=== PATIENT | female | born 2000 | race Caucasian/White ===

== ENCOUNTER 2022-03-18 08:27 | Observation (INO) ==
[2022-03-18] MEDS ORDERED: SODIUM CHLORIDE 0.9% 1000ML 1,000 ML IV STA (08:36)
[2022-03-18 08:58] LABS: Basophils # (auto) 0.02 K/uL (0-0.2); Basophils % (auto) 0.2 %; Eosinophils # (auto) 0.06 K/uL (0-0.5); Eosinophils % (auto) 0.5 %; Hemoglobin 13.3 g/dL (12.0-16.0); Immature Granulocytes # (auto) 0.02 K/uL (0.00-0.02); Immature Granulocytes % (auto) 0.2 %; Lymphocytes # (auto) 2.35 K/uL (1.2-3.4); Mean Corpuscular Hemoglobin 31.4 pg (25-34); Mean Corpuscular Hgb Conc 34.1 g/dL (32-36); Mean Corpuscular Volume 92.2 fL (80-100); Mean Platelet Volume 9.5 fL (7.4-10.4); Monocytes # (auto) 0.95 K/uL (0.11-0.59); Monocytes % (auto) 8.5 %; Neutrophils # (auto) 7.81 K/uL (1.4-6.5); Neutrophils % (auto) 69.6 %; Platelet Count 282 K/uL (130-400); RDW Coefficient of Variation 12.2 % (11.5-14.5); RDW Standard Deviation 41.3 fL (36.4-46.3); Red Blood Count 4.23 M/uL (4.2-5.4); White Blood Count 11.21 K/uL (4.8-10.8)
[2022-03-18] MEDS ORDERED: cefOXitin 2,000 MG/60 ML BAG IV STA (09:00)
[2022-03-18] MEDS ORDERED: MoRPHine SULFATE 2 MG/ML CARP IV STA (09:01)
[2022-03-18] MEDS ORDERED: ONDANSETRON INJ 2 MG/ML 2 ML VIAL IV STA (09:01)
[2022-03-18 09:25] LABS: Pregnancy Test, Serum Negative (Negative)
[2022-03-18] MEDS ORDERED: ePHEDrine sulfate 50 MG/ML AMP IV PRN (10:03)
[2022-03-18] MEDS ORDERED: ONDANSETRON INJ 2 MG/ML 2 ML VIAL IV PRN ×2 (10:03→13:23)
[2022-03-18] MEDS ORDERED: ATROPINE SULFATE 0.1 MG/ML 10ML SYR IV PRN (10:03)
[2022-03-18 10:05] LABS: Albumin Globulin Ratio 1.5 (0.9-2); Albumin Level 4.4 gm/dl (3.4-5.0); BUN Creatinine Ratio 14.5 (10-20); Bilirubin,Total 0.9 mg/dl (0.2-1.0); Calcium 9.3 mg/dl (8.5-10.1); Creatinine Clr Calc Pharmacy 113.2 ml/min; Est GFR (African American) 146.3 ml/min; Est GFR (Non-African American) 126.2 ml/min; Potassium 3.5 mmol/L (3.5-5.1); Total Protein 7.4 gm/dl (6.0-8.3)
--- NOTE | 2022-03-18 10:05 | Anesthesiology Consultation ---
Date of Service March 18, 2022 Assessment & Plan (1) Encounter for pre-operative examination: Chart Review Chart Review: data entry manager initiated History Surgery Operation Date: 03/18/22 09:20 Proposed Procedures p Laparoscopic Appendectomy - Ryan Butcher MD Height/Weight Height: 5 ft 4 in Weight: 63.4 kg Allergies Allergy/AdvReac Type Severity Reaction Status Date / Time No Known Allergies Allergy Verified 03/17/22 21:33 Medications Home Medications Medication Instructions Recorded Confirmed Last Taken norethindrone 1 mg-ethinyl 1 tab PO DAILY 03/17/22 03/17/22 03/17/22 estradiol 20 mcg (21)-iron 75 mg (7) tablet (Adela Fe 11/26 (28)) Past Medical History Medical History No pertinent family history No pertinent past medical history Past Surgical History Surgical History No pertinent past surgical history Social History Smoking Status: Never smoker Physical Exam Vital Signs Last Vital Signs Temp 98.2 F 03/18/22 08:30 Pulse 81 03/18/22 08:30 Resp 16 03/18/22 08:30 BP 112/72 03/18/22 08:30 Pulse Ox 98 03/18/22 08:30 Testing Laboratory Results 03/18/22 08:41
--- NOTE | 2022-03-18 10:27 | History & Physical Report ---
Date of Service March 18, 2022 Assessment & Plan (1) Acute appendicitis: (2) Abdominal pain: Plan: 21 year-old female with abdominal pain that started yesterday afternoon at 3 pm. No pain more located in RLQ. CT scan showing acute appendicitis. Mild Leukocytosis of 11.21K. Tenderness in RLQ with + Rosvig's and McBurney's point. Plan: Discussed imaging findings and labs and examination consistent with likely early acute appendicitis. No Discussed recommendation of laparoscopic appendectomy and risks of procedure as well as expected recovery time. Informed consent obtained keep NPO COVID preop IV Cefoxitin Pending intraoperative findings and time of procedure possible discharge home this evening or tomorrow morning. Dr. Butcher has seen and examined pt, discussed above with patient and obtained consent. History of Present Illness Chief Complaint: Abdominal pain Primary Care Provider: [facility] Rosalba is a 21 year-old health female who originally presented to emergency department last evening with abdominal pain that started at 3 pm yesterday afternoon. She thought she had some indigestion and took Pepto Bismol and then pain started to spread down in lower abdomen and felt similar to ovarian cysts she had in past. She had Abdominal US which was concerning for appendicitis and pelvis US which was unremarkable for ovarian cysts/rupture. She also had CT scan of abdomen and pelvis in which initial read showed no appendicitis. She was called back in as second read of CT scan from our radiologist was consistent with acute appendicitis. She states she took some Tylenol at home last evening but then the pain seems to be increasing and coming back. States in the past the pain was only limited from the ovarian cysts and now this seems different. Denies of any fever, chills, nausea, vomiting, chest pain, shortness of breath, changes in bowel habits, blood in stools, difficulty urinating or blood in urine. Allergies Allergy/AdvReac Type Severity Reaction Status Date / Time No Known Allergies Allergy Verified 03/17/22 21:33 Home Medications Medication Instructions Recorded Confirmed Type norethindrone 1 mg-ethinyl 1 tab PO DAILY 03/17/22 03/18/22 History estradiol 20 mcg (21)-iron 75 mg (7) tablet (Adela Fe 11/26 (28)) Past Med/Surg History Medical History No pertinent family history No pertinent past medical history Surgical History No pertinent past surgical history Social History Smoking Status: Never smoker Preferred Language: [place] Citizen Feels Safe at Home: Yes Physical Exam Constitutional: WD/WN, vitals as above no acute distress and not ill appearing Neck: normal visual inspection and trachea midline Respiratory: normal respiratory effort, lungs clear to auscultation Cardiovascular: RRR, no murmur, no edema Gastrointestinal (Abdomen): Inspection/Auscultation: abdomen normal to inspection; abdomen not distended and + abnormal bowel sounds Percussion/Palpation: + abdomen tender (RLQ) and abdomen soft; no guarding and abdomen not rigid + rosvig's sign Skin: no rashes, warm and dry Psychiatric: A+Ox3, euthymic affect Results & Data Results & Data ([facility]) Vital Signs (Past 12 Hours) Vital Signs Temp Pulse Resp BP Pulse Ox 03/18/22 10:00 71 19 106/71 100 03/18/22 09:30 74 19 113/65 99 03/18/22 09:00 70 18 103/65 99 03/18/22 08:48 81 14 98 03/18/22 08:37 99 03/18/22 08:30 36.8 C 81 16 112/72 98 Laboratory Results 03/18/22 03/18/22 03/18/22 Range/Units 09:21 08:41 08:41 WBC 11.21 H (4.8-10.8) K/uL RBC 4.23 (4.2-5.4) M/uL Hgb 13.3 (12.0-16.0) g/dL Hct 39.0 (37-47) % MCV 92.2 (80-100) fL MCH 31.4 (25-34) pg MCHC 34.1 (32-36) g/dL RDW Std Deviation 41.3 (36.4-46.3) fL RDW Coeff of Natan 12.2 (11.5-14.5) % Plt Count 282 (130-400) K/uL MPV 9.5 (7.4-10.4) fL Immature Gran % (Auto) 0.2 % Neut % (Auto) 69.6 % Lymph % (Auto) 21.0 % [place] % (Auto) 8.5 % Eos % (Auto) 0.5 % Baso % (Auto) 0.2 % Neut # (Auto) 7.81 H (1.4-6.5) K/uL Lymph # (Auto) 2.35 (1.2-3.4) K/uL [place] # (Auto) 0.95 H (0.11-0.59) K/uL Eos # (Auto) 0.06 (0-0.5) K/uL Baso # (Auto) 0.02 (0-0.2) K/uL Immature Gran # (Auto) 0.02 (0.00-0.02) K/uL Sodium 137 (136-145) mmol/L Potassium 3.5 (3.5-5.1) mmol/L Chloride 104 (98-107) mmol/L Carbon Dioxide 27 (21-32) mmol/L Anion Gap 6 (3-11) BUN 10 (6-23) mg/dl Creatinine 0.69 (0.6-1.2) mg/dl Est Cr Clr Drug Dosing 113.2 ml/min Est GFR ( Amer) 146.3 ml/min Est GFR (Non-Af Amer) 126.2 ml/min BUN/Creatinine Ratio 14.5 (10-20) Glucose 91 (70-99(Fasting)) mg/dl Calcium 9.3 (8.5-10.1) mg/dl Total Bilirubin 0.9 (0.2-1.0) mg/dl AST 39 (13-39) U/L ALT 7 (7-52) U/L Alkaline Phosphatase 47 (34-104) U/L Total Protein 7.4 (6.0-8.3) gm/dl Albumin 4.4 (3.4-5.0) gm/dl Globulin 3.0 (2.5-4.0) gm/dl Albumin/Globulin Ratio 1.5 (0.9-2) Lipase 6 L (11-82) U/L HCG, Qual (Negative) SARS-CoV-2 (PCR) Pending Influenza Type A (PCR) Pending Influenza Type B (PCR) Pending RSV (RT-PCR) Pending 03/18/22 Range/Units 08:41 WBC (4.8-10.8) K/uL RBC (4.2-5.4) M/uL Hgb (12.0-16.0) g/dL Hct (37-47) % MCV (80-100) fL MCH (25-34) pg MCHC (32-36) g/dL RDW Std Deviation (36.4-46.3) fL RDW Coeff of Natan (11.5-14.5) % Plt Count (130-400) K/uL MPV (7.4-10.4) fL Immature Gran % (Auto) % Neut % (Auto) % Lymph % (Auto) % [place] % (Auto) % Eos % (Auto) % Baso % (Auto) % Neut # (Auto) (1.4-6.5) K/uL Lymph # (Auto) (1.2-3.4) K/uL [place] # (Auto) (0.11-0.59) K/uL Eos # (Auto) (0-0.5) K/uL Baso # (Auto) (0-0.2) K/uL Immature Gran # (Auto) (0.00-0.02) K/uL Sodium (136-145) mmol/L Potassium (3.5-5.1) mmol/L Chloride (98-107) mmol/L Carbon Dioxide (21-32) mmol/L Anion Gap (3-11) BUN (6-23) mg/dl Creatinine (0.6-1.2) mg/dl Est Cr Clr Drug Dosing ml/min Est GFR ( Amer) ml/min Est GFR (Non-Af Amer) ml/min BUN/Creatinine Ratio (10-20) Glucose (70-99(Fasting)) mg/dl Calcium (8.5-10.1) mg/dl Total Bilirubin (0.2-1.0) mg/dl AST (13-39) U/L ALT (7-52) U/L Alkaline Phosphatase (34-104) U/L Total Protein (6.0-8.3) gm/dl Albumin (3.4-5.0) gm/dl Globulin (2.5-4.0) gm/dl Albumin/Globulin Ratio (0.9-2) Lipase (11-82) U/L HCG, Qual Negative (Negative) SARS-CoV-2 (PCR) Influenza Type A (PCR) Influenza Type B (PCR) RSV (RT-PCR) Diagnostic Findings APPENDIX ULTRASOUND HISTORY: Right lower quadrant abdominal pain. COMPARISON: None. FINDINGS: Transabdominal scanning of the right lower quadrant was performed. The appendix is visualized within the right lower quadrant. The appendix appears noncompressible measuring 7 mm. Trace adjacent free fluid. This is concerning for acute appendicitis. IMPRESSION: Above findings concerning for acute appendicitis. PELVIC ULTRASOUND, TRANSABDOMINAL AND TRANSVAGINAL HISTORY: Right lower quadrant abdominal pain. COMPARISON: None. FINDINGS: Uterus: Unremarkable. Uterus is retroflexed. Trace fluid within the cervical canal. Endometrial stripe: 2 mm in thickness. Right ovary: Normal in size and demonstrates normal color flow. Left ovary: Normal in size and demonstrates normal color flow. Miscellaneous:Small amount of complex fluid within the pelvis and adjacent to th e right ovary. IMPRESSION: 1. Normal uterus and ovaries. 2. Small amount of scattered fluid. ABDOMEN AND PELVIS CT WITH IV CONTRAST CT DOSE: 300.28 mGy.cm HISTORY: Acute right lower quadrant abdominal pain ro appy TECHNIQUE: Multiaxial CT images of the abdomen and pelvis were performed following the IV administration of 93 cc of Optiray, A dose lowering technique was utilized adhering to the principles of ALARA. COMPARISON STUDY: Ultrasound of the appendix of same day FINDINGS: Clear lung bases. No pneumatosis or pneumoperitoneum. The spleen, pancreas, left adrenal gland, mildly contracted gallbladder and liver appear unremarkable. Calcifications of the right adrenal gland suggests prior hemorrhage or infection. Patency of the hepatic and portal veins. Unremarkable kidneys. There is no hydronephrosis. Unremarkable urinary bladder, uterus and adnexa. Trace free pelvic fluid. Aorta and IVC are unremarkable. There is no lymphadenopathy identified. There is no bowel obstruction. There is mild colonic fecal retention. The appendix is mildly dilated measuring up to 8 mm and demonstrates mucosal hyperemia with periappendiceal inflammation. No abscess identified. Unremarkable soft tissues. There is no acute fracture. IMPRESSION: 1. Acute appendicitis. No pneumoperitoneum or abscess. 2. No bowel obstruction. 3. Trace free pelvic fluid. Code Status & VTE Plan VTE Prophylaxis Plan VTE Prophylaxis will be ordered: Yes Supervising Physician Co-Signing Physician Notes I have seen and examined the patient personally and agree with the above physical exam, assessment and plan. In brief this 21-year-old female presenting with right lower quadrant pain to the emergency department last night. The pain has persisted. CT scan demonstrates acute appendicitis. I discussed with her the risks and benefits of a laparoscopic appendectomy. All questions were answered, she is agreeable to proceed. Consent has been obtained. We will take her to the operating room at the earliest convenience. (1) Abdominal pain Abdominal location: unspecified location Qualified Code(s): R10.9 - Unspecified abdominal pain
[2022-03-18 10:29] LABS: Influenza A virus by PCR Negative (Neg); Influenza B virus by PCR Negative (Neg); RSV by PCR Negative (Neg); SARS CoV2 RNA(COVID-19) InHosp NEGATIVE (Negative)
[2022-03-18] MEDS ORDERED: MIDAZOLAM HCL 1 MG/ML 2ML VIAL ONE (10:36)
[2022-03-18] MEDS ORDERED: ONDANSETRON INJ 2 MG/ML 2 ML VIAL ONE (10:36)
[2022-03-18] MEDS ORDERED: GLYCOPYRROLATE 0.2 MG/ML VIAL ONE (10:36)
[2022-03-18] MEDS ORDERED: PROPOFOL IV EMULSION 10 MG/ML 20 ML VIAL IV ONE (10:36)
[2022-03-18] MEDS ORDERED: ROCURONIUM BROMIDE 10 MG/ML 5 ML VIAL IV ONE (10:36)
[2022-03-18] MEDS ORDERED: NEOSTIGMINE METHYLSULFATE 1 MG/ML 10ML VIAL ONE (10:36)
[2022-03-18] MEDS ORDERED: DEXAMETHASONE SOD INJ 4 MG/ML VIAL ONE (10:36)
[2022-03-18] MEDS ORDERED: fentaNYL citrate 100 MCG/2 ML VIAL ONE ×3 (10:36→12:07)
[2022-03-18] MEDS ORDERED: EPINEPHrine INJ 1 MG/ML AMP ONE (10:41)
[2022-03-18] MEDS ORDERED: BUPIVACAINE 0.5 % 5 MG/1 ML MPF 30ML VIAL ONE (10:41)
--- NOTE | 2022-03-18 11:59 | Post Operative Brief Note ---
Immediate Post Op Note v1 Date of Surgery March 18, 2022 Pre & Post Diagnosis Operation Date: 03/18/22 09:20 Pre-Op Diagnosis: Acute appendicitis, Abdominal pain Post-Op Diagnosis: Acute appendicitis I identified the patient and participated in the time-out.: Yes Procedure Operation Date: 03/18/22 09:20 Actual Procedures p Laparoscopic Appendectomy(Not Applicable) - Ryan Butcher MD Surgeon Ryan Butcher MD [employer] Worker CAPRICE Ng assisted with tissue retraction, camera op, closure Estimated Blood Loss 2 Findings Consistent with Post-Op Diagnosis
--- NOTE | 2022-03-18 12:01 | Operative Report ---
Post Operative Report Pre & Post Diagnosis Operation Date: 03/18/22 09:20 Pre-Op Diagnosis: Acute appendicitis, Abdominal pain Post-Op Diagnosis: Acute appendicitis I identified the patient and participated in the time-out.: Yes Procedure Operation Date: 03/18/22 09:20 Actual Procedures p Laparoscopic Appendectomy(Not Applicable) - Ryan Butcher MD Surgeon Ryan Butcher MD Turnaround Planner CAPRICE Ng assisted with tissue retraction, camera op, closure Estimated Blood Loss 2 Findings Consistent with Post-Op Diagnosis Acute appendicitis Specimens Appendix Anesthesia Type General Complications No immediate complications Description of Procedure The patient was taken to the operating room, and placed supine on the operating table. A timeout was performed, perioperative antibiotics were administered, SCD boots were placed. After adequate anesthesia and analgesia was obtained, the abdomen was prepped and draped in the normal sterile fashion. A 1 cm incision was made in the supraumbilical region and carried down to the l evel of the fascia. A trach hook was used to grasp the fascia and elevated and a varies needle was used to enter the abdominal cavity. The abdomen was insufflated to a pressure of 15 mmHg, and a 5 mm trocar was placed in this location. A 5 mm 30 degree laparoscope was placed into the abdominal cavity, and the abdomen was surveyed. The patient was placed in Trendelenburg and slightly to the left. One 5 mm trocar was placed in the right upper quadrant, and one 12 mm trocar was placed in the left lower quadrant under direct visualization. The right colon was identified and traced down to the cecum. The appendix was identified and elevated anteriorly and medially. A window was created at the base of the appendix with a [place] dissector. The Endo ALISA stapler was used to transect the appendix at its base through noninflamed tissue, and subsequently the mesoappendix. The appendix was placed in an Endo Catch bag, and removed via the left lower quadrant port site. Attention was turned to hemostasis, which was excellent. The abdomen was copiously irrigated and suctioned free, and again hemostasis was found to be excellent. All trochars removed under direct visualization. The abdomen was desufflated. The fascia in the 12 mm port site was closed with a 0 Vicryl suture. The skin was closed with a running 4-0 Monocryl subcuticular stitch. Dermabond was applied. The patient tolerated the procedure without complication, and was transferred in stable condition to the PACU. All instrument, needle, and sponge counts were correct at the end of the case. My driller's assistant was necessary throughout the procedure for tissue retraction, possible camera operation, and closure of the wounds. I understand that section 1842(b)(7)(D) of the Social Security act generally prohibits Medicare physician fee schedule payment for the services of assistants at surgery in teaching hospitals when qualified residents are available to furnish such services. I certify that the services for which payment is claimed were medically necessary and that no qualified resident was available to perform the services. I further understand that these services are subject to postpayment review by the Medicare carrier. I attest to the content of the Intraoperative Record and any orders documented therein. Any exceptions are noted below.
[2022-03-18] MEDS: fentaNYL citrate 100 MCG/2 ML VIAL IV PRN ×2 (12:34→12:39)
--- NOTE | 2022-03-18 12:38 | Anesthesiology Progress Note ---
Date of Service March 18, 2022 Anesthesia Post Procedure Vital Signs Vital Signs: Temp Pulse Pulse Pulse Resp BP BP 03/18/22 12:30 60 13 108/61 03/18/22 12:20 58 L 14 109/62 03/18/22 12:11 97.5 F L 65 19 103/59 L 03/18/22 10:52 98.6 F 79 14 03/18/22 10:00 71 19 106/71 03/18/22 09:30 74 19 113/65 03/18/22 09:00 70 18 103/65 03/18/22 08:48 81 14 03/18/22 08:37 03/18/22 08:30 98.2 F 81 16 112/72 BP Pulse Ox 03/18/22 12:30 98 03/18/22 12:20 96 03/18/22 12:11 95 03/18/22 10:52 117/81 97 03/18/22 10:00 100 03/18/22 09:30 99 03/18/22 09:00 99 03/18/22 08:48 98 03/18/22 08:37 99 03/18/22 08:30 98 Pain Intensity Abdomen: Pain Intensity: 5 Transfer of Care Handoff Completed per policy Notes Mental Status: alert / awake / arousable and participated in evaluation Patient Amnestic to Procedure: Yes Nausea / Vomiting: adequately controlled Pain: adequately controlled Airway Patency, RR, SpO2: stable & adequate BP & HR: stable & adequate Hydration State: stable & adequate Anesthetic Complications: no major complications apparent and Pt Satisfied with anesthetic care
[2022-03-18] MEDS ORDERED: oxyCODONE/ACETAMINOPHEN 5mg/325mg TAB PO PRN (13:23)
[2022-03-18] MEDS ORDERED: KETOROLAC 30 MG/ML VIAL IV PRN (13:23)
[2022-03-18] MEDS ORDERED: diphenhydrAMINE Capsule 25 MG CAP PO PRN (13:23)
[2022-03-18] MEDS ORDERED: PROMETHAZINE HCL 12.5 MG in SODIUM CHLORIDE 0.9% 50 ML IV PRN (13:23)
[2022-03-18] MEDS: LACTATED RINGER'S 1,000 ML IV SCH ×2 (13:34→15:42)
[2022-03-18] MEDS: MoRPHine SULFATE 2 MG/ML CARP IV PRN ×2 (13:57→18:34)
--- NOTE | 2022-03-18 15:27 | Emergency Department Note ---
ED Provider Note CHIEF COMPLAINT: [] HISTORY OF PRESENT ILLNESS: This [] patient presents to the emergency department [] REVIEW OF SYSTEMS: A review of systems was performed with positives and pertinent negatives listed in the history of present illness. 10 systems were reviewed and are otherwise negative. ALLERGIES: see below MEDICATIONS: see below PMH: see below SOCIAL HISTORY: see below DDx: [] PHYSICAL EXAM: Vital signs reviewed. General: Well-appearing, in no significant distress. HEENT: No scleral icterus, PERRLA, neck supple. Atraumatic. Cardiovascular: Regular rate and rhythm, no extra sounds. Pulmonary: Clear to auscultation bilaterally, normal work of breathing. Abdomen: Soft, nontender, nondistended, positive bowel sounds. Musculoskeletal: Atraumatic, no peripheral edema. Neurologic: Patient awake alert and oriented x 3, speech is clear Skin: Warm, dry, no rash EMERGENCY DEPARTMENT COURSE/MDM: [] MONITORING: An order for cardiac monitoring was placed and the patient is noted to be in a [] at [] beats per minute. RADIOLOGY: EKG: DISPOSITION: Past Med/Surg History Medical History No pertinent family history No pertinent past medical history Surgical History No pertinent past surgical history Social History Smoking Status: Never smoker Preferred Language: Irish Feels Safe at Home: Yes Allergies Allergies Allergy/AdvReac Type Severity Reaction Status Date / Time No Known Allergies Allergy Verified 03/17/22 21:33 Home Meds Home Medications Medication Instructions Recorded Confirmed norethindrone 1 mg-ethinyl 1 tab PO DAILY 03/17/22 03/18/22 estradiol 20 mcg (21)-iron 75 mg (7) tablet (Adela Fe 11/26 ()) Previous Rx's Medication Instructions Recorded oxycodone-acetaminophen 5 mg-325 1 tab PO Q4H PRN #10 tab 03/18/22 mg tablet (Percocet) Results & Data (ED) Vital Signs Vital Signs - 24 hr 03/18/22 08:30 03/18/22 08:37 03/18/22 08:48 Temperature 36.8 C Temperature Source Temporal Artery Scan Pulse Rate 81 81 Pulse Rate [Right Radial] Pulse Rate from SpO2 Sensor 82 Pulse Rhythm [Right Radial] Pulse Strength [Right Radial] Respiratory Rate 16 14 Respiratory Effort / Characteristics Respiratory Depth Respiratory Pattern Blood Pressure 112/72 Blood Pressure [Right Arm] Blood Pressure Mean 85 Blood Pressure Mean [Right Arm] Pulse Oximetry 98 99 98 Oxygen Delivery Method Room Air Room Air Room Air Sepsis Recent Fever Within 48 Hours No Sepsis New/Unexplained Change in Mental Status No Sepsis Action Taken by Nursing No Action Required 03/18/22 09:00 03/18/22 09:30 03/18/22 10:00 Temperature Temperature Source Pulse Rate 70 74 71 Pulse Rate [Right Radial] Pulse Rate from SpO2 Sensor 69 74 71 Pulse Rhythm [Right Radial] Pulse Strength [Right Radial] Respiratory Rate 18 19 19 Respiratory Effort / Characteristics Respiratory Depth Respiratory Pattern Blood Pressure 103/65 113/65 106/71 Blood Pressure [Right Arm] Blood Pressure Mean 77 81 82 Blood Pressure Mean [Right Arm] Pulse Oximetry 99 99 100 Oxygen Delivery Method Room Air Room Air Room Air Sepsis Recent Fever Within 48 Hours Sepsis New/Unexplained Change in Mental Status Sepsis Action Taken by Nursing 03/18/22 10:52 Temperature 37.0 C Temperature Source Oral Pulse Rate Pulse Rate [Right Radial] 79 Pulse Rate from SpO2 Sensor Pulse Rhythm [Right Radial] Regular Pulse Strength [Right Radial] Normal Respiratory Rate 14 Respiratory Effort / Characteristics Non-Labored Spontaneous Respiratory Depth Normal Respiratory Pattern Regular Blood Pressure Blood Pressure [Right Arm] 117/81 Blood Pressure Mean Blood Pressure Mean [Right Arm] 93 Pulse Oximetry 97 Oxygen Delivery Method Room Air Sepsis Recent Fever Within 48 Hours Sepsis New/Unexplained Change in Mental Status Sepsis Action Taken by Nursing Laboratory Data Result diagrams: 03/18/22 08:41 03/18/22 08:41 Lab Results 03/18/22 03/18/22 03/18/22 Range/Units 08:41 08:41 08:41 WBC 11.21 H (4.8-10.8) K/uL RBC 4.23 (4.2-5.4) M/uL Hgb 13.3 (12.0-16.0) g/dL Hct 39.0 (37-47) % MCV 92.2 (80-100) fL MCH 31.4 (25-34) pg MCHC 34.1 (32-36) g/dL RDW Std Deviation 41.3 (36.4-46.3) fL RDW Coeff of Natan 12.2 (11.5-14.5) % Plt Count 282 (130-400) K/uL MPV 9.5 (7.4-10.4) fL Immature Gran % (Auto) 0.2 % Neut % (Auto) 69.6 % Lymph % (Auto) 21.0 % Dickson % (Auto) 8.5 % Eos % (Auto) 0.5 % Baso % (Auto) 0.2 % Neut # (Auto) 7.81 H (1.4-6.5) K/uL Lymph # (Auto) 2.35 (1.2-3.4) K/uL Dickson # (Auto) 0.95 H (0.11-0.59) K/uL Eos # (Auto) 0.06 (0-0.5) K/uL Baso # (Auto) 0.02 (0-0.2) K/uL Immature Gran # (Auto) 0.02 (0.00-0.02) K/uL Sodium 137 (136-145) mmol/L Potassium 3.5 (3.5-5.1) mmol/L Chloride 104 (98-107) mmol/L Carbon Dioxide 27 (21-32) mmol/L Anion Gap 6 (3-11) BUN 10 (6-23) mg/dl Creatinine 0.69 (0.6-1.2) mg/dl Est Cr Clr Drug Dosing 113.2 ml/min Est GFR ( Amer) 146.3 ml/min Est GFR (Non-Af Amer) 126.2 ml/min BUN/Creatinine Ratio 14.5 (10-20) Glucose 91 (70-99(Fasting)) mg/dl Calcium 9.3 (8.5-10.1) mg/dl Total Bilirubin 0.9 (0.2-1.0) mg/dl AST 39 (13-39) U/L ALT 7 (7-52) U/L Alkaline Phosphatase 47 (34-104) U/L Total Protein 7.4 (6.0-8.3) gm/dl Albumin 4.4 (3.4-5.0) gm/dl Globulin 3.0 (2.5-4.0) gm/dl Albumin/Globulin Ratio 1.5 (0.9-2) Lipase 6 L (11-82) U/L HCG, Qual Negative (Negative) SARS-CoV-2 (PCR) (Negative) Influenza Type A (PCR) (Neg) Influenza Type B (PCR) (Neg) RSV (RT-PCR) (Neg) 03/18/22 Range/Units 09:21 WBC (4.8-10.8) K/uL RBC (4.2-5.4) M/uL Hgb (12.0-16.0) g/dL Hct (37-47) % MCV (80-100) fL MCH (25-34) pg MCHC (32-36) g/dL RDW Std Deviation (36.4-46.3) fL RDW Coeff of Natan (11.5-14.5) % Plt Count (130-400) K/uL MPV (7.4-10.4) fL Immature Gran % (Auto) % Neut % (Auto) % Lymph % (Auto) % Dickson % (Auto) % Eos % (Auto) % Baso % (Auto) % Neut # (Auto) (1.4-6.5) K/uL Lymph # (Auto) (1.2-3.4) K/uL Dickson # (Auto) (0.11-0.59) K/uL Eos # (Auto) (0-0.5) K/uL Baso # (Auto) (0-0.2) K/uL Immature Gran # (Auto) (0.00-0.02) K/uL Sodium (136-145) mmol/L Potassium (3.5-5.1) mmol/L Chloride (98-107) mmol/L Carbon Dioxide (21-32) mmol/L Anion Gap (3-11) BUN (6-23) mg/dl Creatinine (0.6-1.2) mg/dl Est Cr Clr Drug Dosing ml/min Est GFR ( Amer) ml/min Est GFR (Non-Af Amer) ml/min BUN/Creatinine Ratio (10-20) Glucose (70-99(Fasting)) mg/dl Calcium (8.5-10.1) mg/dl Total Bilirubin (0.2-1.0) mg/dl AST (13-39) U/L ALT (7-52) U/L Alkaline Phosphatase (34-104) U/L Total Protein (6.0-8.3) gm/dl Albumin (3.4-5.0) gm/dl Globulin (2.5-4.0) gm/dl Albumin/Globulin Ratio (0.9-2) Lipase (11-82) U/L HCG, Qual (Negative) SARS-CoV-2 (PCR) NEGATIVE (Negative) Influenza Type A (PCR) Negative (Neg) Influenza Type B (PCR) Negative (Neg) RSV (RT-PCR) Negative (Neg) Administered Medications Fentanyl Citrate (Fentanyl Citrate 100 Mcg/2 Ml Vial) 50 mcg IV Q5M PRN PRN Reason: PACU Use Only-Pain Stop: 03/18/22 18:03 Last Admin: 03/18/22 12:39 Dose: 50 mcg Documented by: [id number] Admin: 03/18/22 12:34 Dose: 50 mcg Documented by: [id number] Lactated Ringer's (Lr) 1,000 mls @ 50 mls/hr IV .Q20H INES Stop: 04/17/22 13:22 Last Admin: 03/18/22 13:34 Dose: 50 mls/hr Documented by: [id number] Morphine Sulfate (Morphine Sulfate 2 Mg/Ml Carp) 2 mg IV Q3H PRN PRN Reason: Pain (1,2,3,4,5) & Pre PT Stop: 04/01/22 13:22 Last Admin: 03/18/22 13:57 Dose: 2 mg Documented by: [id number] Oxycodone/Acetaminophen (Oxycodone/Acetaminophen 5mg/325mg Tab) 1 tab PO Q4H PRN PRN Reason: MODERATE Pain (4,5,6) & Pre PT Stop: 04/01/22 13:22 Last Admin: 03/18/22 15:19 Dose: 1 tab Documented by: [id number] Discontinued Medications Bupivacaine HCl (Bupivacaine 0.5 % 5 Mg/1 Ml Mpf 30ml Vial) Confirm Administered Dose 30 ml .ROUTE .STK-MED ONE Stop: 03/18/22 10:42 Last Admin: 03/18/22 11:55 Dose: 30 ml Documented by: [id number] Epinephrine HCl (Epinephrine Inj 1 Mg/Ml Amp) Confirm Administered Dose 1 mg .ROUTE .STK-MED ONE Stop: 03/18/22 10:42 Last Admin: 03/18/22 11:54 Dose: 0.15 mg Documented by: [id number] Sodium Chloride (Nss 1000ml) 1,000 mls @ 999 mls/hr IV .Q1H1M STA Stop: 03/18/22 09:36 Last Infusion: 03/18/22 09:34 Dose: 0 mls/hr Documented by: [id number] Admin: 03/18/22 08:30 Dose: 999 mls/hr Documented by: [id number] Cefoxitin Sodium (Mefoxin) 2,000 mg in 60 mls @ 100 mls/hr IV NOW STA Stop: 03/18/22 09:35 Last Infusion: 03/18/22 09:34 Dose: 0 mls/hr Documented by: [id number] Admin: 03/18/22 09:17 Dose: 100 mls/hr Documented by: [id number] Morphine Sulfate (Morphine Sulfate 2 Mg/Ml Carp) 2 mg IV NOW STA Stop: 03/18/22 09:02 Last Admin: 03/18/22 09:17 Dose: 2 mg Documented by: [id number] Ondansetron HCl (Ondansetron Inj 2 Mg/Ml 2 Ml Vial) 4 mg IV NOW STA Stop: 03/18/22 09:02 Last Admin: 03/18/22 09:18 Dose: 4 mg Documented by: [id number] Discharge Plan Visit Data Chief Complaint: Abdominal Pain Stated Complaint: ABDOMINAL PAIN ED Provider: Neeta Villagomez Patient Disposition: Admitted As Inpatient Discharge Instructions Interventions: ED Discharge Assessment Last Done: 03/18/22 10:19
--- NOTE | 2022-03-19 08:28 | Surgery Progress Note ---
Date of Service March 19, 2022 Assessment & Plan (1) Acute appendicitis: Plan: Postop day 1 status post lap appendectomy. She is doing fairly well. We will plan to discharge her later on today around lunchtime. Encourage ambulation. Admission and Anticipated Discharge Date Admission Date: March 18, 2022 Subjective Postoperative day 1 status post lap appendectomy. She is doing fairly well. She still has some pain at the left lower quadrant incision site. She is eating well without nausea. She denies fevers and chills. Physical Exam Constitutional: WD/WN, vitals as above Gastrointestinal (Abdomen): Inspection/Auscultation: abdomen normal to inspection and + abdominal surgical incision (Clean/dry/intact/Dermabond; no erythema/discharge); abdomen not distended Percussion/Palpation: + abdomen tender (Left lower quadrant incision) and abdomen soft; no guarding and abdomen not rigid Skin: no rashes, warm and dry Psychiatric: A+Ox3, euthymic affect Results & Data ([facility]) Vital Signs (Past 12 Hours) Vital Signs Temp Pulse Resp BP Pulse Ox 03/19/22 07:34 36.9 C 67 16 98/61 L 97 03/19/22 04:10 36.5 C 60 16 112/72 98 03/19/22 00:02 36.4 C L 60 16 110/70 98 03/18/22 23:07 36.4 C L 75 16 110/60 96
--- NOTE | 2022-03-22 14:30 | Discharge Summary ---
Date of Service March 22, 2022 Admission HPI Per Admitting Provider Rosalba is a 21 year-old health female who originally presented to emergency department last evening with abdominal pain that started at 3 pm yesterday afternoon. She thought she had some indigestion and took Pepto Bismol and then pain started to spread down in lower abdomen and felt similar to ovarian cysts she had in past. She had Abdominal US which was concerning for appendicitis and pelvis US which was unremarkable for ovarian cysts/rupture. She also had CT scan of abdomen and pelvis in which initial read showed no appendicitis. She was called back in as second read of CT scan from our radiologist was consistent with acute appendicitis. She states she took some Tylenol at home last evening but then the pain seems to be increasing and coming back. States in the past the pain was only limited from the ovarian cysts and now this seems different. Denies of any fever, chills, nausea, vomiting, chest pain, shortness of breath, changes in bowel habits, blood in stools, difficulty urinating or blood in urine. Principal Diagnosis Acute appendicitis Discharge Exam Constitutional WD/WN, vitals as above Gastrointestinal (Abdomen) Inspection/Auscultation: abdomen normal to inspection and + abdominal surgical incision (Clean/dry/intact/Dermabond; no erythema/discharge); abdomen not distended Percussion/Palpation: + abdomen tender (Left lower quadrant incision) and abdomen soft; no guarding and abdomen not rigid Skin no rashes, warm and dry Psychiatric A+Ox3, euthymic affect Discharge Data Allergies Allergy/AdvReac Type Severity Reaction Status Date / Time No Known Allergies Allergy Verified 03/17/22 21:33 Consultations 03/18/22 09:03 ED Decision to Admit Stat Procedures Performed Operation Date: 03/18/22 09:20 Actual Procedures p Laparoscopic Appendectomy(Not Applicable) - Ryan Butcher MD Hospital Course (1) Acute appendicitis: Patient was seen in the ER and taken to the operating room for laparoscopic appendectomy, the details of which are dictated in a separate operative note. Postoperatively she did well and was transferred in stable condition to the PACU and subsequently to the floor. DVT prophylaxis was maintained with SCD boots and subcutaneous Lovenox. Incentive spirometry and early ambulation were encouraged for pulmonary toilet. Her diet was advanced as tolerated. Pain was controlled with IV and oral pain medication. By the day of discharge, she was tolerating a regular diet, not requiring any IV pain medications, was discharged home in stable condition. She will follow-up in 2 weeks. Total Time Total Time Spent Total Time Spent (In Minutes): 30 min Discharge Plan Discharge Items Patient Disposition: Home - Self-Care Reason For Visit: ACUTE APPENDICITIS Discharge Diagnosis: Acute appendicitis Activity: Per Instructions section Non-emergency contact: Surgeon Call non-emergency contact if: your pain is not controlled, your pain is worsening, you have a fever, your temperature is above 101, your wound has increased redness, your wound has increased drainage and your wound pain has increased Follow-up/Referrals: Ryan Butcher MD [Physician] - 04/02/22 11:30 am [facility] [Primary Care Provider] - Diet: Regular Addtl Attending Provider Instructions: Post-Surgical ~Discharge Instructions Activity Recommendations: - lifting limitation: (20 pounds for 2-3 weeks), - exercise/sex/sports limit: (nonstrenuous for 2 weeks), - driving or machine use limit: (none for 1 week, until pain free and no longer taking narcotic pain medication), - Shower/bathe limit: (may shower beginning tomorrow) Diet: - Resume previous diet SPECIAL CARE INSTRUCTIONS: - May shower in 24 hours. Let water run over area and pat dry. - Surgical glue will fall off on its own. Do Not pick at it as this can cause infection. - Call the surgeon's office with any questions or concerns - - (ex. temperature higher than 101 degrees F, excessive bleeding or pain). MEDICATIONS: - Resume previous medications unless instructed otherwise by your surgeon. - May alternate extra strength Tylenol and Ibuprofen as needed for mild to moderate pain -650 mg every 6 hours as needed - Ibuprofen 600 mg every 6 hours as needed (take with food) - Percocet 1 every 4 hours, as needed for moderate to severe pain - Recommend daily stool softener (Colace) while taking narcotic pain medication to prevent constipation or straining. Drink plenty of water daily. FOLLOW UP VISIT: - You should follow-up with your primary care doctor in 2 weeks. - Call [facility] office if you have any questions/concerns. Office number Pending Studies at Discharge: Yes (appendix pathology) Stand-Alone Forms: My [facility] Medications and DC Order Prescriptions: New oxycodone-acetaminophen [Percocet] 5-325 mg tablet 1 tab PO Q4H PRN (Reason: pain) Qty: 10 RF: 0 Continued norethindrone-e.estradiol-iron [Adela Fe 11/26 (28)] 1 mg-20 mcg (21)/75 mg (7) tablet 1 tab PO DAILY RF: 0 Discharge Orders: Discharge Order (Routine); Ordered 03/19/22 Ordered By: Laure Ng Admission Data Admit Date/Time: 03/18/22 12:03 Attending Provider: Ryan Butcher Admit Provider: Ryan Butcher Primary Care Provider: [facility] Other Providers: Ryan Butcher Other Interventions: Discharge Summary Assessment (RN) Last Done: 03/19/22 09:15
== END 2022-03-19 11:15 | disposition home or self-care (01) ==
LOC: ED 08:27 → ASU 10:45 → 3W 10:45
DX: K35.80 Unspecified acute appendicitis